=== PATIENT | female | born 1965 | race Asian ===

== ENCOUNTER → 2016-12-02 | Outpatient (CLI) | payer OTHER | LOC: MC.RAD 09:40 | DX: Z12.31 Encounter for screening mammogram for malignant neoplasm of breast (principal) ==

== ENCOUNTER → 2017-12-02 | Outpatient (CLI) | payer OTHER | LOC: MC.RAD 10:56 | DX: N63.10 Unspecified lump in the right breast, unspecified quadrant (principal) ==

== ENCOUNTER → 2017-12-09 | Outpatient (CLI) | payer OTHER | LOC: MC.RAD 08:00 | DX: N63.10 Unspecified lump in the right breast, unspecified quadrant (principal) ==

== ENCOUNTER → 2017-12-24 | Outpatient (CLI) | payer OTHER | LOC: MC.RAD 09:53 | DX: N63.10 Unspecified lump in the right breast, unspecified quadrant (principal); Z85.3 Personal history of malignant neoplasm of breast ==

== ENCOUNTER → 2017-12-29 | Outpatient (CLI) | payer OTHER | LOC: MC.RAD 13:50 | DX: C50.211 Malignant neoplasm of upper-inner quadrant of right female breast (principal); C50.411 Malignant neoplasm of upper-outer quadrant of right female breast; N62 Hypertrophy of breast; R92.0 Mammographic microcalcification found on diagnostic imaging of breast ==

== ENCOUNTER 2018-01-06 06:52 | Day surgery (SDC) | payer OTHER ==
[2018-01-06] VITALS (9 sets, daily range): BP systolic 114–142; BP diastolic 67–745; PULSE 68–94; TEMP 97.2–97.6
[~2018-01-06] VITALS: Ht 165.1 cm; Wt 76.1 kg
[2018-01-06] MEDS ORDERED: NORCO 325 MG-51 TAB PO (16:57)
== END 2018-01-06 19:20 | disposition home or self-care (01) ==
LOC: SDCO 06:52
DX: C50.211 Malignant neoplasm of upper-inner quadrant of right female breast (principal); Z17.0 Estrogen receptor positive status [ER+]
CPT/HCPCS: A9541; J0690; J1100; J1885; J2405; J2704; J3010; J7120

== ENCOUNTER → 2018-10-19 | Outpatient (CLI) | payer OTHER ==
[~2018-10-19] MED LIST: NORCO 325 MG-51 TAB PO
== END ==
LOC: MC.RAD 09:00
DX: C50.211 Malignant neoplasm of upper-inner quadrant of right female breast (principal); Z98.890 Other specified postprocedural states
CPT/HCPCS: G0279

== ENCOUNTER → 2020-05-15 | Outpatient (CLI) | payer OTHER | LOC: MC.RAD 09:00 | DX: R92.8 Other abnormal and inconclusive findings on diagnostic imaging of breast (principal); Z98.82 Breast implant status; Z85.3 Personal history of malignant neoplasm of breast ==

== ENCOUNTER → 2021-09-27 | Outpatient (CLI) | payer OTHER | LOC: MC.RAD 11:00 | DX: Z85.3 Personal history of malignant neoplasm of breast (principal); Z98.890 Other specified postprocedural states ==

== ENCOUNTER → 2022-11-06 | Outpatient (CLI) | payer OTHER | LOC: MC.RAD 10-16 07:15 | DX: Z12.31 Encounter for screening mammogram for malignant neoplasm of breast (principal); N64.89 Other specified disorders of breast; Z85.3 Personal history of malignant neoplasm of breast; Z98.890 Other specified postprocedural states; Z92.3 Personal history of irradiation ==

== ENCOUNTER → 2022-11-08 | Outpatient (CLI) | payer OTHER | LOC: MC.RAD 11:00 | DX: R92.8 Other abnormal and inconclusive findings on diagnostic imaging of breast (principal) ==